=== PATIENT | female | born 1950 | race African-American/Black ===

== ENCOUNTER 2025-10-16 09:45 | Inpatient (IN) | payer MEDICARE, BC ==
[2025-10-16] MEDS ORDERED: Iopamidol-370 76% 500 ML MDV (1 ML CHARGE) ONE (10:21)
[2025-10-16] MEDS ORDERED: cefTRIAXone (ROCEPHIN) 2 GM VIAL ONE (11:43)
[2025-10-16] MEDS ORDERED: Magnesium 2 GM/50 ML BAG (IN WATER) ONE (11:43)
[2025-10-16] MEDS ORDERED: Dexamethasone 10 MG/ML VIAL ONE (11:43)
[2025-10-16] MEDS ORDERED: Albuterol 2.5 MG (0.5 mL) NEB ONE (12:07)
[2025-10-16 12:11] LABS: #Basophils 0.03 10x3/uL (0.0-0.2); #Eosinophils 0.19 10x3/uL (0.0-0.7); #Monocytes 0.54 10x3/uL (0.11-0.59); #Neutrophils 2.35 10x3/uL (1.40-6.50); %Basophils 0.6 % (0.0-1.0); %Eosinophils 4.1 % (0.0-10.0); %Lymphocytes 33.0 % (21.0-51.0); %Monocytes 11.6 % (0.0-10.0); %Neutrophils 50.5 % (42.0-75.0); Hematocrit 43.3 % (36.0-47.0); Hemoglobin 14.0 g/dL (12.0-16.0); Mean Corpuscular Hemoglobin 25.9 pg (27.0-31.0); Mean Corpuscular Volume 80.0 fL (78.0-98.0); Platelet Count 277 10x3/uL (130-400); Red Blood Cell (RBC) Count 5.41 mill/uL (4.20-5.40); White Blood Cell (WBC) Count 4.66 10x3/uL (4.8-10.8)
[2025-10-16 12:13] LABS: CAUTI Indications for Culture Acute Hematuria; Glucose, Urine (Dipstick) Normal (Negative); Leukocyte 500 Leu/uL (Negative); Protein, Urine (Dipstick) 30 mg/dL (Neg-Trace); RBC/HPF None Seen HPF (0-3); Specific Gravity, Urine 1.011 (1.002-1.036)
[2025-10-16 12:30] LABS: Bacteria/HPF 1+ HPF (None Seen)
[2025-10-16 12:31] LABS: Urine Culture Reflex Yes Yes
[2025-10-16 13:02] LABS: ALT (SGPT) 16 U/L (Less than 34); AST (SGOT) 36 U/L (11-34); Albumin 3.8 g/dL (3.1-4.5); Alkaline Phosphatase 69 U/L (40-110); Anion Gap 14 mmol/L (10-20); BUN (Urea Nitrogen) 23 mg/dL (9.8-20.1); Bilirubin, Total 0.3 mg/dL (0.3-1.2); Calc. Creatinine Clearance 0 mL/min (70-130); Calcium 9.9 mg/dL (7.8-10.44); Carbon Dioxide 20 mmol/L (23-31); Chloride 107 mmol/L (98-107); Globulin 4.0 g/dL (2.4-3.5); Glucose 104 mg/dL (83-110); Potassium 4.0 mmol/L (3.5-5.1); Sodium 137 mmol/L (136-145)
[2025-10-16] MEDS ORDERED: Azithromycin 500 MG VIAL ONE (14:13)
[2025-10-16] MEDS ORDERED: Dextromethorphan Polistirex 60 MG/10 ML ER.12 HR UDCUP PO PRN (14:52)
[2025-10-16 15:32] VITALS: BMI 32.8
[2025-10-16 17:37] LABS: Legionella Urinary Ag Negative (Negative); Strep pneumo Urine Ag NEGATIVE (NEGATIVE)
[2025-10-16] MEDS ORDERED: methylPREDNISolone Sod Succ/PF 40 MG in Sodium Chloride 0.9% 250 ML 250 ML IVPB SCH (18:00)
[2025-10-16] MEDS: Famotidine 20 MG TAB PO SCH (21:09)
[2025-10-16] MEDS: Melatonin 3 MG TAB PO PRN (21:09)
[2025-10-16] MEDS: guaiFENesin/DM ER PO SCH (21:09)
[2025-10-16] MEDS: Acetaminophen 325 MG TAB PO PRN (21:10)
[2025-10-16] MEDS: Guaifenesin DM 100-10/5 ML UDCUP PO PRN (21:11)
[2025-10-16] MEDS: Ketorolac Tromethamine 30 MG (1 mL) VIAL IVP PRN (21:13)
[2025-10-17 05:33] LABS: Hematocrit 37.0 % (36.0-47.0); Hemoglobin 12.0 g/dL (12.0-16.0); Mean Corpuscular Hemoglobin 26.0 pg (27.0-31.0); Mean Corpuscular Volume 80.3 fL (78.0-98.0); Platelet Count 238 10x3/uL (130-400); Red Blood Cell (RBC) Count 4.61 mill/uL (4.20-5.40); White Blood Cell (WBC) Count 2.35 10x3/uL (4.8-10.8)
[2025-10-17 05:44] LABS: Anion Gap 17 mmol/L (10-20); BUN (Urea Nitrogen) 28 mg/dL (9.8-20.1); Calc. Creatinine Clearance 55 mL/min (70-130); Calcium 8.7 mg/dL (7.8-10.44); Carbon Dioxide 15 mmol/L (23-31); Chloride 107 mmol/L (98-107); Glucose 258 mg/dL (83-110); Potassium 4.2 mmol/L (3.5-5.1); Sodium 135 mmol/L (136-145)
[2025-10-17 06:33] LABS: Anisocytosis MODERATE=16-30 cells HPF (0-5); Burr Cells SLIGHT = 2-5 cells HPF (0-1); Macrocytosis SLIGHT = 6-15 cells HPF (0-5); Platelet Adequacy Comment Platelets Normal; Polychromasia SLIGHT = 2-3 cells HPF (0-2); Smudge Cells 5.1 %
[2025-10-17] MEDS: HYDROcodone/Acetaminophen 5/325 mg Tablet PO PRN (09:30)
[2025-10-17] MEDS: Benzonatate 100 MG CAP PO SCH (09:30)
[2025-10-17] MEDS: cefTRIAXone\\ROCEPHIN 1 GM in Sodium Chloride 0.9% 100 ML IVPB SCH (09:31)
[2025-10-17] MEDS ORDERED: Ketorolac Tromethamine 30 MG (1 mL) VIAL IVP PRN (11:00)
[2025-10-17] MEDS: Azithromycin 500 MG in Sodium Chloride 0.9% 250 ML 250 ML IVPB SCH (12:26)
[2025-10-17] MEDS ORDERED: Furosemide 20 MG TAB PO PRN (13:59)
[2025-10-17] MEDS: NIFEdipine XL 60 MG ER.TAB PO SCH (19:52)
[2025-10-18 05:30] LABS: Hematocrit 34.3 % (36.0-47.0); Hemoglobin 11.2 g/dL (12.0-16.0); Mean Corpuscular Hemoglobin 26.2 pg (27.0-31.0); Mean Corpuscular Volume 80.3 fL (78.0-98.0); Platelet Count 249 10x3/uL (130-400); Red Blood Cell (RBC) Count 4.27 mill/uL (4.20-5.40); White Blood Cell (WBC) Count 6.46 10x3/uL (4.8-10.8)
[2025-10-18 05:35] LABS: Anion Gap 13 mmol/L (10-20); BUN (Urea Nitrogen) 28 mg/dL (9.8-20.1); Calc. Creatinine Clearance 55 mL/min (70-130); Calcium 8.6 mg/dL (7.8-10.44); Carbon Dioxide 17 mmol/L (23-31); Chloride 110 mmol/L (98-107); Glucose 98 mg/dL (83-110); Potassium 3.9 mmol/L (3.5-5.1); Sodium 136 mmol/L (136-145)
[2025-10-18 05:36] LABS: CRP, High Sensitivity at Bryan 0.30 mg/dL (< or = 0.5)
[2025-10-18 06:04] LABS: Platelet Adequacy Comment Platelets Normal; Poikilocytosis SLIGHT = 6-15 cells HPF (0-5); Polychromasia SLIGHT = 2-3 cells HPF (0-2); Target Cells SLIGHT = 2-5 cells HPF (0-1)
[2025-10-18] MEDS: Losartan 25 MG TAB PO SCH (10:04)
[2025-10-18] MEDS: guaiFENesin/Codeine 200 mg/20 mg 10 ml Cup PO PRN (14:42)
[2025-10-19] MEDS: Ondansetron PF 4 MG/2 ML Vial IVP PRN (05:50)
[2025-10-19 06:13] LABS: #Basophils 0.04 10x3/uL (0.0-0.2); #Eosinophils 0.31 10x3/uL (0.0-0.7); #Monocytes 0.43 10x3/uL (0.11-0.59); #Neutrophils 3.71 10x3/uL (1.40-6.50); %Basophils 0.6 % (0.0-1.0); %Eosinophils 4.7 % (0.0-10.0); %Lymphocytes 31.9 % (21.0-51.0); %Monocytes 6.5 % (0.0-10.0); %Neutrophils 56.0 % (42.0-75.0); Hematocrit 36.9 % (36.0-47.0); Hemoglobin 12.0 g/dL (12.0-16.0); Mean Corpuscular Hemoglobin 26.3 pg (27.0-31.0); Mean Corpuscular Volume 80.9 fL (78.0-98.0); Platelet Count 281 10x3/uL (130-400); Red Blood Cell (RBC) Count 4.56 mill/uL (4.20-5.40); White Blood Cell (WBC) Count 6.62 10x3/uL (4.8-10.8)
[2025-10-19 06:36] LABS: Anion Gap 14 mmol/L (10-20); BUN (Urea Nitrogen) 18 mg/dL (9.8-20.1); Calc. Creatinine Clearance 64 mL/min (70-130); Calcium 8.9 mg/dL (7.8-10.44); Carbon Dioxide 19 mmol/L (23-31); Chloride 111 mmol/L (98-107); Glucose 116 mg/dL (83-110); Potassium 4.0 mmol/L (3.5-5.1); Sodium 140 mmol/L (136-145)
[2025-10-19] MEDS ORDERED: PNEUMOC 20-VAL CONJ-DIP CRM/PF 0.5 ML SYRINGE IM ONE (16:15)
[2025-10-19] MEDS: cloNIDine 0.2mg/24 Hour PATCH TD SCH (20:18)
[2025-10-19] MEDS: Nitroglycerin 2% Ointment 1 INCH/1 GM Packet TOP SCH (20:18)
[2025-10-19] MEDS ORDERED: Pantoprazole 40 MG DR.TAB PO SCH (21:00)
[2025-10-20 06:11] LABS: #Basophils Less than 0.03 10x3/uL (0.0-0.2); #Eosinophils 0.03 10x3/uL (0.0-0.7); #Monocytes 0.47 10x3/uL (0.11-0.59); #Neutrophils 3.45 10x3/uL (1.40-6.50); %Basophils 0.2 % (0.0-1.0); %Eosinophils 0.5 % (0.0-10.0); %Lymphocytes 31.1 % (21.0-51.0); %Monocytes 8.2 % (0.0-10.0); %Neutrophils 59.8 % (42.0-75.0); Hematocrit 36.9 % (36.0-47.0); Hemoglobin 12.1 g/dL (12.0-16.0); Mean Corpuscular Hemoglobin 26.5 pg (27.0-31.0); Mean Corpuscular Volume 80.7 fL (78.0-98.0); Platelet Count 276 10x3/uL (130-400); Red Blood Cell (RBC) Count 4.57 mill/uL (4.20-5.40); White Blood Cell (WBC) Count 5.76 10x3/uL (4.8-10.8)
[2025-10-20 06:33] LABS: Anion Gap 13 mmol/L (10-20); BUN (Urea Nitrogen) 16 mg/dL (9.8-20.1); Calc. Creatinine Clearance 64 mL/min (70-130); Calcium 9.0 mg/dL (7.8-10.44); Carbon Dioxide 21 mmol/L (23-31); Chloride 112 mmol/L (98-107); Glucose 97 mg/dL (83-110); Potassium 3.8 mmol/L (3.5-5.1); Sodium 142 mmol/L (136-145)
[2025-10-20] MEDS: Pantoprazole 40 MG VIAL IVP SCH (09:01)
[2025-10-20] MEDS: NIFEdipine XL 30 MG ER.TAB PO SCH (17:19)
[2025-10-21 08:00] LABS: #Basophils 0.03 10x3/uL (0.0-0.2); #Eosinophils 0.19 10x3/uL (0.0-0.7); #Monocytes 0.53 10x3/uL (0.11-0.59); #Neutrophils 5.57 10x3/uL (1.40-6.50); %Basophils 0.4 % (0.0-1.0); %Eosinophils 2.4 % (0.0-10.0); %Lymphocytes 19.7 % (21.0-51.0); %Monocytes 6.7 % (0.0-10.0); %Neutrophils 70.4 % (42.0-75.0); Hematocrit 37.5 % (36.0-47.0); Hemoglobin 11.9 g/dL (12.0-16.0); Mean Corpuscular Hemoglobin 25.7 pg (27.0-31.0); Mean Corpuscular Volume 81.0 fL (78.0-98.0); Platelet Count 236 10x3/uL (130-400); Red Blood Cell (RBC) Count 4.63 mill/uL (4.20-5.40); White Blood Cell (WBC) Count 7.91 10x3/uL (4.8-10.8)
[2025-10-21 08:12] LABS: Anion Gap 12 mmol/L (10-20); BUN (Urea Nitrogen) 16 mg/dL (9.8-20.1); Calc. Creatinine Clearance 64 mL/min (70-130); Calcium 8.9 mg/dL (7.8-10.44); Carbon Dioxide 23 mmol/L (23-31); Chloride 112 mmol/L (98-107); Glucose 102 mg/dL (83-110); Potassium 3.8 mmol/L (3.5-5.1); Sodium 143 mmol/L (136-145)
[2025-10-21] MEDS: Losartan 25 MG TAB PO SCH (08:52)
[2025-10-21] MEDS: Acetaminophen 325 MG TAB PO PRN (08:52)
[2025-10-21] MEDS: Pantoprazole 40 MG DR.TAB PO SCH (08:53)
[2025-10-21] MEDS: NIFEdipine XL 30 MG ER.TAB PO SCH (08:53)
[2025-10-21] MEDS: Sulfameth/Trimethoprim DS 800-160mg TAB PO SCH (20:22)
[2025-10-22 05:31] LABS: #Basophils Less than 0.03 10x3/uL (0.0-0.2); #Eosinophils 0.30 10x3/uL (0.0-0.7); #Monocytes 0.65 10x3/uL (0.11-0.59); #Neutrophils 4.93 10x3/uL (1.40-6.50); %Basophils 0.3 % (0.0-1.0); %Eosinophils 3.8 % (0.0-10.0); %Lymphocytes 26.0 % (21.0-51.0); %Monocytes 8.1 % (0.0-10.0); %Neutrophils 61.5 % (42.0-75.0); Hematocrit 35.4 % (36.0-47.0); Hemoglobin 11.3 g/dL (12.0-16.0); Mean Corpuscular Hemoglobin 25.8 pg (27.0-31.0); Mean Corpuscular Volume 80.8 fL (78.0-98.0); Platelet Count 231 10x3/uL (130-400); Red Blood Cell (RBC) Count 4.38 mill/uL (4.20-5.40); White Blood Cell (WBC) Count 8.00 10x3/uL (4.8-10.8)
[2025-10-22 05:47] LABS: Anion Gap 11 mmol/L (10-20); BUN (Urea Nitrogen) 14 mg/dL (9.8-20.1); Calc. Creatinine Clearance 65 mL/min (70-130); Calcium 8.7 mg/dL (7.8-10.44); Carbon Dioxide 24 mmol/L (23-31); Chloride 110 mmol/L (98-107); Glucose 114 mg/dL (83-110); Potassium 3.8 mmol/L (3.5-5.1); Sodium 141 mmol/L (136-145)
[2025-10-22 08:12] VITALS: BP 137/75; TEMP 98.3
== END 2025-10-22 13:10 | disposition home or self-care (01) | DRG 871 ==
LOC: ERS 09:45 → T4-A 14:12
PROVIDERS: ADMIT Family Medicine; ATTEND Internal Medicine
PROC: 3E03329 Introduction of Other Anti-infective into Peripheral Vein, Percutaneous Approach (ICD-10-PCS; principal; 2025-10-19)
PROC: 0D9670Z Drainage of Stomach with Drainage Device, Via Natural or Artificial Opening (ICD-10-PCS; 2025-10-20)
DX: A41.9 Sepsis, unspecified organism (principal); J18.9 Pneumonia, unspecified organism; J96.01 Acute respiratory failure with hypoxia; T83.510A Infection and inflammatory reaction due to cystostomy catheter, initial encounter; N39.0 Urinary tract infection, site not specified; K43.6 Other and unspecified ventral hernia with obstruction, without gangrene; I10 Essential (primary) hypertension; Z98.890 Other specified postprocedural states; E66.89 Other obesity not elsewhere classified; Z68.32 Body mass index [BMI] 32.0-32.9, adult; R65.20 Severe sepsis without septic shock; B96.89 Other specified bacterial agents as the cause of diseases classified elsewhere; Y84.6 Urinary catheterization as the cause of abnormal reaction of the patient, or of later complication, without mention of misadventure at the time of the procedure
CPT/HCPCS: 36415; 71045; 71275; 74018; 74177; 74250; 80048; 80053; 81001; 83605; 83880; 84145; 85025; 85379; 86141; 87040; 87070; 87077; 87086; 87186; 87205; 87428; 87449; 87899; 93005; 94640; 96365; 96368; 96375; J0456; J0696; J1100; J1885; J2272; J2405; J2470; J2543; J2919; J3475; J7030; J7050; J7120; J7611; Q9967